=== PATIENT | male | born 1935 | race Caucasian/White ===

== ENCOUNTER 2017-12-18 06:10 | Day surgery (SDC) | payer MEDICARE, BC ==
[2017-12-17 11:13] LABS: CLARITY,URINE Clear (Clear); COLOR,URINE Yellow (Yellow); GLUCOSE, URINE Negative (Neg); KETONES,URINE Negative (Neg); LEUKOCYTE ESTERASE ,URINE Negative (Neg); NITRITES, URINE Negative (Neg); OCCULT BLOOD,URINE Negative (Neg); PROTEIN,URINE Negative (Neg)
[2017-12-17 11:22] LABS: ALBUMIN 3.8 G/DL (3.4-5.0); ALBUMIN/GLOBULIN RATIO 1.1 (1.1-1.5); ALKALINE PHOSPHATASE 81 IU/L (46-116); BLOOD UREA NITROGEN 15 MG/DL (7-18); BUN/CREATININE RATIO 17.6 (5.4-32.0); CALCIUM 8.7 MG/DL (8.5-10.1); CHLORIDE 105 MMOL/L (99-107); CREATININE 0.85 MG/DL (0.60-1.10); PRE OP ALT 27 U/L (30-65); PRE OP ANION GAP 8 (8-16); PRE OP AST 22 U/L (10-37); PRE OP BILIRUB, TOTAL 0.6 MG/DL (0.0-1.0); PRE OP GLUCOSE 130 MG/DL (70-104); PRE OP POTASSIUM 3.8 MMOL/L (3.4-5.1); PRE OP SODIUM 143 MMOL/L (135-145); TOTAL CARBON DIOXIDE 29.9 MMOL/L (24-32); TOTAL PROTEIN 7.2 G/DL (6.4-8.2); eGFR 87 ML/MIN
[2017-12-17 11:23] LABS: UA COLLECTION TYPE CLN CATCH MIDSTREAM
[2017-12-17 11:27] LABS: BASOPHILS % (AUTO) 0.3 % (0-1); EOSINOPHILS # (AUTO) 0.1 X10'3 (0-0.9); EOSINOPHILS % (AUTO) 0.6 % (0-6); LYMPHOCYTES # (AUTO) 1.3 X10'3 (1.1-4.8); LYMPHOCYTES % (AUTO) 13.7 % (21-51); MEAN CORPUSCULAR HEMOGLOBIN 32.6 PG (27.0-31.0); MEAN CORPUSCULAR HGB CONC 34.2 % (33.0-36.5); MEAN CORPUSCULAR VOLUME 95.4 FL (78-98); MEAN PLATELET VOLUME 9.7 FL (7.4-10.4); MONOCYTES # (AUTO) 0.3 X10'3 (0-0.9); MONOCYTES % (AUTO) 3.2 % (2-12); NEUTROPHILS # (AUTO) 7.5 X10'3 (1.8-7.7); NEUTROPHILS % (AUTO) 82.2 % (42-75); PRE OP HEMOGLOBIN 13.3 g/dL (14.0-17.9); PRE OP PLATELET COUNT 188 X10'3 (140-440); RED BLOOD COUNT 4.09 X10'6 (4.70-6.10)
[~2017-12-18] VITALS: Ht 175.3 cm; Wt 73.5 kg
[2017-12-18] VITALS (10 sets, daily range): BP systolic 127–179; BP diastolic 79–115
[~2017-12-18 06:10] MED LIST: ASPI-611 PO; CARB1TAB36; cefazolin/dext.iso 2gm/50ml 50 ML IV ONE; famotidine 20mg tablet PO ONE; ringers solution, lacted 1,000 ML IV SCH
[2017-12-18] MEDS ORDERED: BUPIVAcaine/PF 2.5 mg/ml (0.25%) 30ml vial ONE (09:50)
[2017-12-18] MEDS ORDERED: ceFAZolin 1000mg inj ONE (09:50)
[2017-12-18] MEDS ORDERED: ringers solution, lacted 1,000 ML IV SCH (10:21)
[2017-12-18] MEDS ORDERED: meperidine/PF 50mg/ml syringe IV PRN ×3 (10:25)
[2017-12-18] MEDS ORDERED: ondansetron/PF 4mg/2ml inj IV PRN (10:25)
[2017-12-18] MEDS ORDERED: morphine 2 MG/ML inj. syringe IV PRN ×2 (10:25)
[2017-12-18] MEDS ORDERED: proCHLORperazine 10 MG/2 ml inj IV PRN (10:25)
[2017-12-18] MEDS ORDERED: morphine 4 MG/ML inj SYRINge IV PRN ×2 (10:25→10:26)
[2017-12-18] MEDS ORDERED: atropine 0.4 mg/ml 20ml vial ONE (10:53)
[2017-12-18] MEDS ORDERED: desflurane 240ml liquid inh. IH ONE (10:53)
[2017-12-18] MEDS ORDERED: phenylephrine 10mg/ml inj IV ONE (10:53)
[2017-12-18] MEDS ORDERED: fentaNYL/PF 50MCG/1 ML 2ML syringe ONE (11:00)
[2017-12-18] MEDS ORDERED: midazolam 2 mg/2 ml injection ONE (11:02)
[2017-12-18] MEDS ORDERED: LIDOcaine 2% 5ml jelly ONE (11:57)
[2017-12-18] MEDS ORDERED: propofol inj 20 ML IV ONE (11:57)
[2017-12-18] MEDS ORDERED: LIDOcaine 2% (20mg/ml) 5ml vial ONE (11:57)
[2017-12-18] MEDS ORDERED: rocuronium 10mg/ml inj IV ONE (11:57)
== END 2017-12-18 13:29 | disposition home or self-care (01) ==
LOC: PAS 06:10
PROVIDERS: ATTEND Surgery
DX: K40.90 Unilateral inguinal hernia, without obstruction or gangrene, not specified as recurrent (principal); G20 Parkinson's disease; I08.0 Rheumatic disorders of both mitral and aortic valves; Z72.89 Other problems related to lifestyle; Z98.890 Other specified postprocedural states; Z79.82 Long term (current) use of aspirin; Z79.899 Other long term (current) drug therapy
CPT/HCPCS: 36415; 49505; 80053; 81003; 85025; 93005; 93306; A4315; A6258; C1727; C1781; J0461; J0690; J2001; J2250; J2370; J2704; J3010; J3490; J7120